=== PATIENT | female | born 1980 | race African-American/Black ===

== ENCOUNTER 2016-11-22 11:27 | Outpatient (CLI) | payer MEDICAID ==
[2016-11-22 11:56] LABS: Hematocrit 42.1 % (30.3-42.9); Hemoglobin 14.4 gm/dl (10.1-14.3); Mean Corpuscular HGB Conc 34 % (30-34); Mean Corpuscular Hemoglobin 32 pg (28-32); Mean Corpuscular Volume 94 fl (79-97); Platelet Count 224 K/mm3 (140-440); Red Blood Count 4.47 M/mm3 (3.65-5.03); Red Cell Distribution Width 12.8 % (13.2-15.2)
[2016-11-22 12:20] LABS: Alanine Aminotransferase 15 units/L (7-56); Albumin 4.2 g/dL (3.9-5); Albumin/Globulin Ratio 1.2 %; Alkaline Phosphatase 56 units/L (35-129); Anion Gap 17 mmol/L; BUN/Creatinine Ratio 16.66; Blood Urea Nitrogen 10 mg/dL (7-17); Calcium 8.6 mg/dL (8.4-10.2); Carbon Dioxide 22 mmol/L (22-30); Chloride 103.9 mmol/L (98-107); Cholesterol 116 mg/dL (50-199); Glucose 79 mg/dL (65-100); HDL Cholesterol 53 mg/dL (40-59); LDL Cholesterol,Direct 48 mg/dL (50-130); Potassium 3.6 mmol/L (3.6-5.0); Sodium 139 mmol/L (137-145); Total Protein 7.6 g/dL (6.3-8.2); Triglycerides 76 mg/dL (2-149)
== END 2016-11-22 11:28 | disposition home or self-care (01) ==
LOC: LAB 11:27
PROVIDERS: ATTEND Internal Medicine
DX: A15.9 Respiratory tuberculosis unspecified (principal)
CPT/HCPCS: 36415; 80053; 80061; 82785; 84436; 84443; 85027

== ENCOUNTER 2017-06-24 08:44 | Outpatient (CLI) | payer MEDICAID ==
[2017-06-24] MEDS ORDERED: KINEVAC IV ONE (10:36)
--- NOTE | 2017-06-24 14:22 | Nuclear Medicine Report ---
HEPATOBILIARY SCAN: History: Abdominal pain, epigastric pain. Comparison: None. Following the injection of the radionuclide, serial scanning was obtained over the right upper quadrant. Initial imaging of the liver demonstrates a relatively normal activity pattern. Progressive concentration of the radionuclide in the bile ducts, with filling of both the gallbladder and small bowel, is identified within a normal time period. The gallbladder ejection fraction is at the lower limits of normal measuring 36%. The patient reported nausea during the infusion of CCK. IMPRESSION: Normal biliary system. Normal gallbladder ejection fraction. Symptomatology as described.
== END 2017-06-24 08:45 | disposition home or self-care (01) ==
LOC: NM 08:44
PROVIDERS: ATTEND Nurse Practitioner Primary Care
DX: R10.13 Epigastric pain (principal); R14.2 Eructation; R14.0 Abdominal distension (gaseous)
CPT/HCPCS: 78227; A9537; J2805